=== PATIENT | female | born 1960 | race American Indian/Alaskan Native ===

== ENCOUNTER 2016-10-24 20:49 | Emergency (ER) | payer SELFPAY ==
[2016-10-24 22:14] LABS: Hematocrit 31.2 % (30.3-42.9); Hemoglobin 10.3 gm/dl (10.1-14.3); Mean Corpuscular HGB Conc 33 % (30-34); Mean Corpuscular Hemoglobin 31 pg (28-32); Mean Corpuscular Volume 92 fl (79-97); Platelet Count 255 K/mm3 (140-440); Red Blood Count 3.37 M/mm3 (3.65-5.03); Red Cell Distribution Width 13.9 % (13.2-15.2); White Blood Count 5.7 K/mm3 (4.5-11.0)
[2016-10-24 22:21] LABS: Anion Gap 16 mmol/L; BUN/Creatinine Ratio 25.55; Blood Urea Nitrogen 23 mg/dL (7-17); Calcium 9.4 mg/dL (8.4-10.2); Carbon Dioxide 24 mmol/L (22-30); Chloride 103.1 mmol/L (98-107); Glucose 92 mg/dL (65-100); Potassium 4.2 mmol/L (3.6-5.0); Sodium 139 mmol/L (137-145)
--- NOTE | 2016-10-25 03:19 | Emergency Department Report ---
HPI - General Chief Complaint: Extremity Injury, Lower Time Seen by Provider: 10/25/16 02:16 - HPI HPI: This 56-year-old female presents to ED complaining of left knee pain 3 weeks. Patient's dates stent in aggravate knee and leg 6 days. Patient states intermittently she gets this knee. Patient states she had x-ray March last year and an ultrasound which found no diagnosis. Denies any medical history of any conditions Patient denies fevers/chills/nausea/abdominal pain/chest pain/calf tenderness/ injury or fall or trauma to the knee. ED Past Medical Hx - Past Medical History Previous Medical History?: Yes Hx Seizures: Yes Additional medical history: Lupus - Surgical History Past Surgical History?: Yes Additional Surgical History: tubal ligation - Social History Smoking Status: Never Smoker Substance Use Type: None - Medications Home Medications: Home Medications Medication Instructions Recorded Confirmed Last Taken Type Hydroxychloroquine [Plaquenil] 200 mg PO QDAY 10/24/16 10/24/16 Unknown History Lisinopril [Zestril] 20 mg PO QDAY 10/24/16 10/24/16 Unknown History carBAMazepine [TEGretol] 400 mg PO Q8HR 10/24/16 10/24/16 Unknown History Cyclobenzaprine [Flexeril] 10 mg PO QHS PRN #20 tablet 10/25/16 Unknown Rx Naproxen [Naprosyn] 500 mg PO BID #30 tablet 10/25/16 Unknown Rx ED Review of Systems ROS: Stated complaint: LEG AND FOOT PAIN Other details as noted in HPI Constitutional: denies: chills, fever Eyes: denies: eye pain, eye discharge, vision change ENT: denies: ear pain, throat pain Respiratory: denies: cough, shortness of breath, wheezing Cardiovascular: denies: chest pain, palpitations Endocrine: no symptoms reported Gastrointestinal: denies: abdominal pain, nausea, diarrhea Genitourinary: denies: urgency, dysuria, frequency, hematuria, discharge Musculoskeletal: arthralgia. denies: back pain, joint swelling Skin: denies: rash, lesions Neurological: denies: headache, weakness, numbness, paresthesias, confusion Psychiatric: denies: anxiety, depression Hematological/Lymphatic: denies: easy bleeding, easy bruising Physical Exam - Physical Exam Vital Signs: Vital Signs 10/24/16 10/24/16 21:01 21:05 Temperature 98.0 F Pulse Rate 67 Respiratory 18 Rate Blood Pressure 144/109 152/100 [Right] O2 Sat by Pulse 100 Oximetry Physical Exam: GENERAL: Alert and oriented x3, no apparent distress, Normal Gait, atraumatic. HEAD: Head is normocephalic and a-traumatic. EYES: Extra ocular muscles are intact. Pupils are equal, round, and reactive to light and accommodation. NECK: Supple. Non edematous, No carotid bruits. No lymphadenopathy or thyromegaly. No C-spine tenderness LUNGS: Symetrical with respiration, No wheezing, no rales or crackles, CTAB. HEART: S1, S2 present, regular rate and rhythm without murmur, no rubs, no gallops. EXTREMITIES/MUSCULOSKELETAL: No cyanosis, clubbing, rash, lesions or edema. Full ROM bilaterally. UE/LE Pulses 2+ bilaterally. LE and UE 5+ strength bilaterally, straight leg raise negative bilaterally. Mild tenderness to palpation of the left knee. Nonedematous, nonerythematous, full range of motion NEUROLOGIC: No focal Deficit, Cranial nerves II through XII are grossly intact. No loss of sensation, SKIN: Warm and dry, No lesions, No ulceration or induration present. ED Course Vital Signs 10/24/16 10/24/16 21:01 21:05 Temperature 98.0 F Pulse Rate 67 Respiratory 18 Rate Blood Pressure 144/109 152/100 [Right] O2 Sat by Pulse 100 Oximetry ED Medical Decision Making - Lab Data Result diagrams: 10/24/16 21:46 10/24/16 21:46 - Medical Decision Making 56-year-old female presents with arthralgia of the knee ED course: Discussed the patient to follow up with primary care physician for chronic management of pain. Labs are ordered by triage nurse. Patient had concerns that she might be diabetic. Discussed lab findings with patient. Discussed with patient to rest any and avoid standing for prolonged time. Discussed protective shoes. Discussed taking medications as prescribed. Symptoms are stable patient is in no acute respiratory distress. Patient verbally understands and will follow instructions. Critical care attestation.: If time is entered above; I have spent that time in minutes in the direct care of this critically ill patient, excluding procedure time. ED Disposition Clinical Impression: Arthralgia of knee Qualifiers: Laterality: left Qualified Code(s): M25.562 - Pain in left knee Disposition: DISCHARGED TO HOME OR SELFCARE Is pt being admited?: No Does the pt Need Aspirin: No Condition: Stable Instructions: Arthralgia (ED) Additional Instructions: follow up as discussed Prescriptions: Cyclobenzaprine [Flexeril] 10 mg PO QHS PRN #20 tablet PRN Reason: Muscle Spasm Naproxen [Naprosyn] 500 mg PO BID #30 tablet Referrals: PRIMARY MD MIRELLA [Primary Care Provider] - 3-5 Days RAMIRO TRIVEDI MD [Referring] - 3-5 Days [facility] [Outside] - 3-5 Days [facility] [Outside] - 3-5 Days [facility] [Outside] - 3-5 Days Forms: Work/School Release Form(ED) Time of Disposition: 03:27
[2016-10-25] MEDS ORDERED: FLEXERIL PO ONE (03:29)
[2016-10-25] MEDS ORDERED: MOTRIN PO ONE (03:29)
[2016-10-25 04:01] VITALS: BP 150/92
== END 2016-10-25 04:01 | disposition home or self-care (01) ==
LOC: ED 20:49
DX: M25.562 Pain in left knee (principal); R56.9 Unspecified convulsions
CPT/HCPCS: 36415; 80048; 85027; 99283

== ENCOUNTER 2020-12-17 10:19 | Outpatient (CLI) | payer OTHER ==
[2020-12-17 11:44] LABS: Hematocrit 34.4 % (30.3-42.9); Hemoglobin 11.5 gm/dl (10.1-14.3)
== END 2020-12-17 10:20 | disposition home or self-care (01) ==
LOC: LAB 10:19
PROVIDERS: ATTEND Internal Medicine
DX: D64.9 Anemia, unspecified (principal); L93.2 Other local lupus erythematosus; G40.802 Other epilepsy, not intractable, without status epilepticus; I10 Essential (primary) hypertension; F32.89 Other specified depressive episodes
CPT/HCPCS: 36415; 85014; 85018; 85660

== ENCOUNTER 2021-06-25 18:53 | Emergency (ER) | payer SELFPAY ==
[2021-06-25 21:36] LABS: Basophils % (Auto) 0.8 % (0.0-1.8); Eosinophils # (Auto) 0.2 K/mm3 (0.0-0.4); Eosinophils % (Auto) 4.5 % (0.0-4.3); Hematocrit 33.1 % (30.3-42.9); Hemoglobin 10.7 gm/dl (10.1-14.3); Lymphocytes # (Auto) 2.1 K/mm3 (1.2-5.4); Lymphocytes % (Auto) 43.8 % (13.4-35.0); Mean Corpuscular HGB Conc 33 % (30-34); Mean Corpuscular Volume 93 fl (79-97); Monocytes # (Auto) 0.4 K/mm3 (0.0-0.8); Monocytes % (Auto) 8.9 % (0.0-7.3); Platelet Count 238 K/mm3 (140-440); Red Blood Count 3.54 M/mm3 (3.65-5.03); Red Cell Distribution Width 13.7 % (13.2-15.2)
[2021-06-25 21:46] LABS: Amphetamine Screen,Urine Negative; Benzodiazepines Screen,Urine Negative; Cannabinoid Screen,Urine Negative; Cocaine Screen,Urine Negative; Methadone Screen,Urine Negative; Opiate Screen,Urine Negative
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
[2021-06-25 21:56] LABS: Blood Urea Nitrogen 18 mg/dL (7-17); Calcium 9.4 mg/dL (8.4-10.2); Hemolysis Index 6
[2021-06-25 22:07] LABS: BUN/Creatinine Ratio 26
[2021-06-25 23:00] VITALS: BP 113/76
== END 2021-06-25 22:59 | disposition home or self-care (01) ==
LOC: ED 18:53
DX: R20.2 Paresthesia of skin (principal); R41.82 Altered mental status, unspecified; F41.9 Anxiety disorder, unspecified; F31.9 Bipolar disorder, unspecified; Z86.69 Personal history of other diseases of the nervous system and sense organs; Z98.51 Tubal ligation status; Z79.899 Other long term (current) drug therapy
CPT/HCPCS: 36415; 80048; 80307; 83735; 85025; 99284